=== PATIENT | male | born 1960 | race Caucasian/White ===

== ENCOUNTER 2018-04-10 16:35 | Emergency (ER) | payer OTHER ==
[2018-04-10] MEDS: predniSONE 20 MG TAB PO (18:06)
[2018-04-10] MEDS: ALBUTEROL 0.083% (NEB) 2.5 MG/3 ML AMP NEB (18:20)
[2018-04-10] MEDS: IPRATROPIUM (NEB) 0.5 MG/2.5 ML AMP NEB (18:20)
== END 2018-04-10 19:20 | disposition home or self-care (01) ==
LOC: FTE 16:35
DX: J45.901 Unspecified asthma with (acute) exacerbation (principal)
CPT/HCPCS: 94664; 99283-25

== ENCOUNTER 2018-08-01 15:45 | Emergency (ER) | payer SELFPAY, OTHER ==
[2018-08-01] MEDS: ALBUTEROL 0.083% (NEB) 2.5 MG/3 ML AMP NEB (18:25)
[2018-08-01] MEDS: IPRATROPIUM (NEB) 0.5 MG/2.5 ML AMP NEB (18:25)
[2018-08-01] MEDS: DEXAMETHASONE 10 MG/ML 1 ML INJ PO (18:35)
== END 2018-08-01 19:10 | disposition home or self-care (01) ==
LOC: FTE 15:45
DX: J45.901 Unspecified asthma with (acute) exacerbation (principal); I10 Essential (primary) hypertension; E11.9 Type 2 diabetes mellitus without complications
CPT/HCPCS: 94664; 99283-25